=== PATIENT | male | born 1955 | race Caucasian/White ===

== ENCOUNTER 2020-06-28 01:16 | Outpatient (CLI) | payer OTHER, SELFPAY ==
[2020-06-28 16:16] LABS: SARS-CoV-2 RNA PCR Negative
== END 2020-06-28 01:17 | disposition home or self-care (01) ==
LOC: ANHCOVIDDT 01:16
PROVIDERS: PCP Family Medicine; Visit Provider Internal Medicine Gastroenterology
DX: Z01.812 Encounter for preprocedural laboratory examination (principal); Z20.828 Contact with and (suspected) exposure to other viral communicable diseases
CPT/HCPCS: 87635; C9803; U0003

== ENCOUNTER 2020-06-30 00:06 | Day surgery (SDC) | payer OTHER, SELFPAY ==
[2020-06-17 13:07] VITALS: BMI 26.0
[2020-06-30 06:55] VITALS: BP 152/94; PULSE 105; RESP 18; TEMP 36.9; O2SAT 97; BMI 25.1
[2020-06-30] MEDS: LACTATED RINGERS 1,000 ML 30 ML IV CONT (07:27)
--- NOTE | 2020-06-30 07:38 | WPDANESEPPF ---
Anes - Initial Pre Proc Eval Procedure: Operation Date: 06/30/20 08:00 Proposed Procedures p Screening Colonoscopy - Rogers Martinez MD Date/Time: 06/30/20 07:38 Surgeon: Rogers Martinez MD Pre Op Diagnosis: Hx Colon Polyps/ Neoplasm Screening Patient Data Age: 65 Gender: M Height: 5 ft 9 in Weight: 77.1 kg Last Vital Signs Temp 36.9 C 06/30/20 06:55 Pulse 105 H 06/30/20 06:55 Resp 18 06/30/20 06:55 BP 152/94 H 06/30/20 06:55 Pulse Ox 97 06/30/20 06:55 Allergies Allergy/AdvReac Type Severity Reaction Status Date / Time No Known Allergies Allergy Verified 06/30/20 06:54 Home Medications Medication Instructions Recorded Confirmed Type atorvastatin 10 mg PO DAILY 06/17/20 06/17/20 History [id number]-[id number]-vit K-lycop 1 tablet PO DAILY 06/17/20 06/17/20 History [Men's Multivitamin] Patient hx anesthesia problems: none Family hx anesthesia problems: none PMFSH Past Medical History Medical History Hyperlipidemia Social History Social History Gender identity (if verbalized by the patient): Male Anes - Eval Final PreProcedure Day of Procedure 06/30/20 07:38 Patient weight: normal Heart: regular rate and rhythm Lungs: clear to auscultation Airway: Mallampati scale class II Neurological: alert and oriented Last oral intake: >/= 8 hours ASA classification: II Emergent: no Anesthetic plan: proceed Anesthesia type and monitoring: general GIVS and standard monitoring Informed Consent: The patient's anesthetic plan and its attendant risks and benefits were discussed with the patient/family/POA. Questions were solicited and answers provided to the satisfaction of the patient/family/POA.
--- NOTE | 2020-06-30 08:09 | WPDGICN ---
Assessment and Plan Assessment and plan (1) History of colon polyps: Code(s): Z86.010 - Personal history of colonic polyps Status: Acute Assessment and Plan: Patient has a prior history of colon polyps. Plan is for a surveillance colonoscopy at this time. High-fiber diet is advised. Follow-up colonoscopy has been suggested at 5 year intervals. Further recommendations may be given after colonoscopy. GI Consult Note Consult date/time: 06/30/20 08:09 HPI: Louis Torres is a 65 year old male Presents for follow-up colonoscopy. Patient has a prior history of colon polyps. He states that his current weight appetite bowel movements are normal. He on occasion will notice bright red blood per rectum attributed to known hemorrhoids. His family history is noncontributory. Patient states that his current weight appetite bowel movements are normally denies abdominal pain he has had no bleeding recently. Review of Systems Review of Systems: All systems reviewed & are unremarkable except as noted in HPI and below PMFSH Past Medical History Medical History Hyperlipidemia Social History Social History Gender identity (if verbalized by the patient): Male Meds Home Medications and Allergies Home Medications Medication Instructions Recorded Confirmed Type atorvastatin 10 mg PO DAILY 06/17/20 06/17/20 History fjhsxqso-ymg-ccwzk-vit K-lycop 1 tablet PO DAILY 06/17/20 06/17/20 History [Men's Multivitamin] Allergies Allergy/AdvReac Type Severity Reaction Status Date / Time No Known Allergies Allergy Verified 06/30/20 06:54 Vital Signs Vital Signs - 24 hr 06/30/20 06:55 Temperature 98.5 F Pulse Rate 105 H Respiratory Rate 18 Blood Pressure 152/94 H Pulse Oximetry 97 Exam Narrative: Exam Narrative: Physical exam reveals patient to be alert. Vital signs stable. HEENT exam unremarkable. Lungs are clear to auscultation and percussion. Heart is without murmur or extra sounds. Abdominal exam bowel sounds are present soft nontender with no organomegaly. Digital external rectal exam normal.
[2020-06-30 08:36] VITALS: BP 93/59; PULSE 99; RESP 24; O2SAT 96
[2020-06-30 08:40] VITALS: BP 84/54; PULSE 94; RESP 24; O2SAT 94
[2020-06-30 08:46] VITALS: BP 95/59; PULSE 77; RESP 17; O2SAT 94
[2020-06-30 09:02] VITALS: BP 108/73; PULSE 73; RESP 18; O2SAT 96
== END 2020-06-30 09:19 | disposition home or self-care (01) ==
PROVIDERS: PCP Family Medicine; Visit Provider Internal Medicine Gastroenterology
PROC: 0DJD8ZZ Inspection of Lower Intestinal Tract, Via Natural or Artificial Opening Endoscopic (ICD-10-PCS; CPT 45378; principal; 2020-06-30 08:00)
DX: Z12.11 Encounter for screening for malignant neoplasm of colon (principal); Z86.010 Personal history of colon polyps; K57.30 Diverticulosis of large intestine without perforation or abscess without bleeding; K64.8 Other hemorrhoids; E78.5 Hyperlipidemia, unspecified
CPT/HCPCS: 45378; J2704; J7120